=== PATIENT | female | born 1945 | race Caucasian/White ===

== ENCOUNTER 2016-08-24 06:19 | Day surgery (SDC) | payer MEDICARE, OTHER ==
[~2016-08-24] VITALS: Ht 170.2 cm; Wt 44.5 kg
[~2016-08-24 06:19] MED LIST: ALENDRONATE SOD70 MG PO; ATIVAN0.5 MG PO; HYDROCODON-ACE1 EAC7 PO; REMERON30 MG PO; ZANAFLEX4 MG PO
[2016-08-24 06:59] VITALS: BP 128/78; Ht 170.2 cm; Wt 44.5 kg
[2016-08-24] MEDS ORDERED: VALIUM10 MG PO (07:09)
[2016-08-24 08:21] LABS: BASOPHILS 0.4 % (0.0-2.0); EOSINOPHILS 1.9 % (0-7); HEMATOCRIT 38.4 % (36.0-48.0); HEMOGLOBIN 13.2 g/dL (12-16); IMMATURE GRANULOCYTES 0.2 % (0-5); LYMPHOCYTES 31.2 % (15-50); MCH 36.6 pg (26.0-34.0); MCHC 34.4 g/dL (31.0-37.0); MCV 106.4 fL (80.0-100.0); MEAN PLATELET VOLUME 9.4 fL (7.4-10.4); MONOCYTES 15.2 % (2-11); NEUTROPHILS 51.1 % (40-80); PLATELET COUNT 266 10x3/uL (130-400); RBC 3.61 10x6/uL (4.00-5.40); RDW 13.3 % (11.5-14.5); WBC 5.1 10x3/uL (4.8-10.8)
[2016-08-24 08:41] LABS: CALC OSMOLALITY 275 mosm/kg (275-300); CALCIUM 9.8 mg/dL (8.5-10.1); CARBON DIOXIDE 30.3 mmol/L (21.0-32.0); CHLORIDE - SERUM 101 mmol/L (98-107); CREATININE - SERUM 0.8 mg/dL (0.6-1.3); GLUCOSE 97 mg/dL (74-106); POTASSIUM - SERUM 4.1 mmol/L (3.5-5.1); SODIUM 139 mmol/L (136-145); UREA NITROGEN 8 mg/dL (7-18); eGFR NON AFRICAN AMERICAN 75 mL/min (90-120)
[2016-08-24] MEDS ORDERED: HYDROCODON-ACE1 EAC7 PO (11:46)
--- NOTE | 2016-08-27 13:15 | OP ---
PATIENT NAME: SARANYA BOSTON MEDICAL RECORD: [id number] :[birth year] LOCATION:D.OPS ADMISSION DATE: SURGEON: MARVIN PARSONS MD DATE OF OPERATION: 08/24/2016 PREOPERATIVE DIAGNOSES: 1. Left breast microcalcifications. 2. Tobacco dependent syndrome. 3. Osteoporosis. POSTOPERATIVE DIAGNOSES: 1. Left breast microcalcifications. 2. Tobacco dependent syndrome. 3. Osteoporosis. PROCEDURE: Needle localization excision of left breast microcalcifications. SURGEON: Marvin Parsons MD REPORT OF PROCEDURE: Preoperatively, the patient went to radiology and underwent a needle localization of some microcalcifications in the left breast. The patient was then transferred to the operating room and her left breast was prepped and draped in sterile fashion. A total of 10 mL of 1% lidocaine with epinephrine was infused into the surrounding tissues. A skin incision was made on the inferior lateral aspect of the nipple areolar complex. We dissected down around the wire and pulled the wire through this incision site. We then removed a core of tissue around this wire and sent it off for permanent specimen and initially was sent off to mammography, where they checked and saw that the wire was intact and the calcifications were in the specimen. At this point, we irrigated out the wound and closed the subcutaneous tissues with interrupted 3-0 Vicryls. The skin was then closed with running subcutaneous 5-0 Monocryl. COMPLICATIONS: None. CONDITION: Stable. ANESTHESIA: Local MAC. BLOOD LOSS: Minimal. TRANSINT:[id number] Voice Confirmation ID: [id number] DOCUMENT ID: [id number] MARVIN PARSONS MD at 1315 CC: SEAN KING MD [id number] DICTATION DATE: 08/24/16 1148 BUSINESS RISK CONSULTANT: 08/24/[address] [facility] 08/24/16 [place] [id number] [place] [address]
== END 2016-08-24 13:15 | disposition home or self-care (01) ==
LOC: D.OPS 06:19 → D.PAN 08:00 → D.MAMMO 08:00 → D.OPS 09:30
PROVIDERS: Surgery
DX: D24.2 Benign neoplasm of left breast (principal); N60.92 Unspecified benign mammary dysplasia of left breast; N60.12 Diffuse cystic mastopathy of left breast; F17.200 Nicotine dependence, unspecified, uncomplicated; M81.0 Age-related osteoporosis without current pathological fracture

== ENCOUNTER → 2016-12-10 11:04 | Outpatient (CLI) | payer MEDICARE, OTHER ==
[2016-08-24 06:59] VITALS: BMI 15.3
[~2016-12-10 11:04] MED LIST changes: +VALIUM10 MG PO
== END | disposition home or self-care (01) ==
LOC: D.CT 11:04
DX: R31.29 Other microscopic hematuria (principal); R30.0 Dysuria

== ENCOUNTER → 2018-01-19 08:14 | Outpatient (CLI) | payer MEDICARE, OTHER ==
[2016-08-24 06:59] VITALS: BMI 15.3
== END | disposition home or self-care (01) ==
LOC: D.NM 08:14
DX: Z96.649 Presence of unspecified artificial hip joint (principal)

== ENCOUNTER → 2018-03-01 14:46 | Outpatient (CLI) | payer MEDICARE, OTHER ==
[2016-08-24 06:59] VITALS: BMI 15.3
--- NOTE | ~2018-03-01 | HEMODYNAMI ---
PATIENT:SARANYA BOSTON MEDICAL RECORD: [id number] : 49 LOCATION:D.SP ADMISSION DATE: 03/01/18 Generatedon:03/01/201815:22 Patient name: SARANYA BOSTON Patient #: [id number] SSN: : 1945 Date of study: 03/01/2018 Page: Of Hemodynamic Procedure Report Patient Data Patient Demographics Procedure consent was obtained First Name: SARANYA Gender: Female Last Name: DARVIN : 1945 [facility] Initial: SURY Age: 72 year(s) Patient #: [id number] Race: Unknown Additional ID: [id number] Contact details [address]: [address] [place] [address] State: [place] City: [place] Zip code: [address] Admission Admission Data Admission Date: 03/01/2018 Admission Time: 14:46 Procedure Procedure Types Cath Procedure Peripheral Cath Diagnostic Procedure Miscellaneous Procedure Description Procedure Date Procedure Date: 03/01/2018 Procedure Start Time: 15:05 Procedure Staff Name Function Prashanth Huizar RT Monitor Flo Barbour MD Performing Physician Procedure Data Cath Procedure Fluoroscopy Diagnostic fluoroscopy Total fluoroscopy Time: 0.6 time: 0.6 min min Diagnostic fluoroscopy Total fluoroscopy dose: 3 dose: 3 mGy mGy Hemodynamics Rest Pre Cath Intra NCS Post Cath Procedure Log Time Note 14:48:45 Prashanth Huizar RT (R) (CV) sent for patient. Start room use. 14:49:27 PT.TAKES NO BLOOD THINNERS AND HAS NO ALLERGIES 14:49:37 Signed procedure consent form obtained from patient. 14:49:55 PROCEDURE EXPLAINED TO PT 14:59:48 --------ALL STOP TIME OUT------ 14:59:51 Right groin site verified by team. 14:59:57 Sedation plan: IV Moderate Sedation Medication:Lidocaine 15:00:46 Full Disclosure recording started 15:00:46 Procedure started. 15:05:28 Local anesthetic to right HIP with Lidocaine 1% by Flo Barbour MD.INITIAL ACCESS ONLY 15:12:37 Procedure ended.(Physican Out) 15:13:07 Sharps counted by scrub and verified by R.N. 15:13:16 fluid sent to lab from right hip 15:13:27 Flurop Dose total: 3 15:13:34 BANDAIDE APPLIED TO RT.GROIN AREA SITE IS STABLE 15:13:56 Fluoroscopy time 00.60 minutes. 15:13:57 POST INSTRUCTIONS GIVEN VERBALLY TO PT PT. SENT HOME 15:14:19 Patient RELEASE HOME Ambulatory. 15:15:14 Full Disclosure recording stopped 15:21:27 Fluoroscopy dose: 3 mGy Signature Audit [place] Stage Time Signature Unsigned Intra-Procedure 03/01/2018 Prashanth Huizar RT 3:15:09 PM [place] RT (R) (CV) 03/01/2018 (R) (CV) 3:17:55 PM Intra-Procedure 03/01/2018 Prashanth Burgerield RT 3:18:52 PM [place] RT (R) (CV) 03/01/2018 (R) (CV) 3:20:33 PM Intra-Procedure 03/01/2018 Prashanth 3:22:33 PM [place] RT (R) (CV) Signatures Monitor : Prashanth Signature : [place] RT Date : Time : [place] [id number]
[2018-03-01 17:52] LABS: EOS BF 2 %; MACROPHAGES BF 6 %; MESOTHELIALS BF 2 %; NEUT - BF 8 %
== END | disposition home or self-care (01) ==
LOC: D.RAD 02-24 13:00 → D.SP 02-24 13:00
PROVIDERS: Clinical Nurse Specialist Family Health
DX: T84.84XA Pain due to internal orthopedic prosthetic devices, implants and grafts, initial encounter (principal); M25.551 Pain in right hip; Z01.812 Encounter for preprocedural laboratory examination

== ENCOUNTER 2018-06-15 09:23 | Emergency (ER) | payer MEDICARE, OTHER ==
[~2018-06-15] VITALS: Ht 170.2 cm; Wt 40.0 kg
[2018-06-15 09:27] VITALS: Ht 170.2 cm; Wt 40.0 kg
[2018-06-15] MEDS ORDERED: AMBIEN5 MG PO (09:29)
[2018-06-15] MEDS ORDERED: CRESTOR20 MG PO (09:29)
[2018-06-15] MEDS ORDERED: ATIVAN0.5 MG PO (09:30)
[2018-06-15] MEDS ORDERED: NORCO 10-325 TA1 TAB PO (09:30)
[2018-06-15 10:51] LABS: BASOPHILS 0.2 % (0-2); EOSINOPHILS 1.4 % (0-7); HEMATOCRIT 38.9 % (36.0-48.0); HEMOGLOBIN 13.7 g/dL (12-16); IMMATURE GRANULOCYTES 0.2 % (0-5); LYMPHOCYTES 23.4 % (15-50); MCH 36.1 pg (26.0-34.0); MCHC 35.2 g/dL (31.0-37.0); MCV 102.6 fL (80.0-100.0); MEAN PLATELET VOLUME 9.1 fL (7.4-10.4); MONOCYTES 13.6 % (2-11); NEUTROPHILS 61.2 % (40-80); RBC 3.79 10x6/uL (4.00-5.40); RDW 13.1 % (11.5-14.5); WBC 8.7 10x3/uL (4.8-10.8)
[2018-06-15 10:52] LABS: PLATELET COUNT 320 10x3/uL (130-400)
[2018-06-15 10:55] LABS: APPEARANCE CLEAR (CLEAR); BACTERIA MODERATE /hpf (NONE SEEN); BILIRUBIN NEGATIVE (NEGATIVE); COLOR YELLOW (YELLOW); GLUCOSE NEGATIVE (NEGATIVE); HYALINE CAST 0-5 /lpf (NONE SEEN); KETONE NEGATIVE (NEGATIVE); MUCUS <1+ /lpf (NONE SEEN); NITRITE POSITIVE (NEGATIVE); PROTEIN NEGATIVE (NEGATIVE); RED CELLS - URINE 0-5 /hpf (0-5); SPECIFIC GRAVITY 1.015 (1.005-1.020); UROBILINOGEN NORMAL (NORMAL); WAXY CAST RARE /lpf (NONE SEEN); WHITE CELLS - URINE 0-5 /hpf (0-5)
[2018-06-15 11:09] LABS: ALBUMIN 3.6 g/dL (3.4-5.0); ALKALINE PHOSPHATASE 77 U/L (46-116); ALT (SGPT) 26 U/L (10-68); BILIRUBIN - TOTAL 0.38 mg/dL (0.2-1.3); CALC OSMOLALITY 277 mosm/kg (275-300); CALCIUM 9.3 mg/dL (8.5-10.1); CARBON DIOXIDE 29.1 mmol/L (21.0-32.0); CHLORIDE - SERUM 100 mmol/L (98-107); CREATININE - SERUM 0.8 mg/dL (0.6-1.3); GLUCOSE 116 mg/dL (74-106); POTASSIUM - SERUM 3.7 mmol/L (3.5-5.1); PROTEIN - SERUM 7.7 g/dL (6.4-8.2); SODIUM 139 mmol/L (136-145); UREA NITROGEN 9 mg/dL (7-18); eGFR NON AFRICAN AMERICAN 75 mL/min (90-120)
[2018-06-15] MEDS ORDERED: MACROBID100 MG PO (11:29)
[2018-06-15 12:17] VITALS: BP 134/77
== END 2018-06-15 12:00 | disposition home or self-care (01) ==
LOC: D.ER 09:23
PROVIDERS: Family Medicine
DX: R30.0 Dysuria (principal); N39.0 Urinary tract infection, site not specified; F17.200 Nicotine dependence, unspecified, uncomplicated